=== PATIENT | female | born 1965 | race Hispanic/Latino ===

== ENCOUNTER 2017-10-03 09:12 | Emergency (ER) | payer MEDICARE, MEDICAID ==
[2017-10-03 09:18] VITALS: BMI 28.1
[2017-10-03 10:09] LABS: BASO # 0.1 K/uL (0.0-0.2); BASO % 0.9 % (0.0-2.0); EOS # 0.1 K/uL (0.0-0.7); EOS % 0.7 % (0.0-4.0); LYMPH # 1.8 K/uL (1.0-4.3); LYMPH % 23.1 % (20.0-40.0); MEAN CELL VOLUME 92.1 fl (81.0-99.0); MEAN CORPUSCULAR HGB CONC 32.6 g/dL (33.0-37.0); MONO # 0.4 K/uL (0.0-0.8); MONO % 5.5 % (0.0-10.0); NEUT # 5.3 K/uL (1.8-7.0); NEUT % 69.8 % (50.0-75.0); RBC 4.33 Mil/uL (3.80-5.20); RED CELL DISTRIBUTION WIDTH 14.7 % (11.5-14.5); WHITE BLOOD COUNT 7.6 K/uL (4.8-10.8)
[2017-10-03 10:11] LABS: SQUAMOUS EPITHIAL < 1 /hpf (0-5); URINE BACTERIA RARE (<OCC); URINE BILIRUBIN NEGATIVE (NEGATIVE); URINE BLOOD NEGATIVE (NEGATIVE); URINE CLARITY CLEAR (Clear); URINE COLOR STRAW (YELLOW); URINE GLUCOSE (UA) NEG (Normal); URINE LEUKOCYTE ESTERASE NEG Leu/uL (Negative); URINE NITRATE NEGATIVE (NEGATIVE); URINE PROTEIN NEGATIVE (NEGATIVE); URINE UROBILINOGEN 0.2-1.0 mg/dL (0.2-1.0)
--- NOTE | 2017-10-03 10:23 | ED PDOC ---
HPI: General Adult Time Seen by Provider: 10/03/17 09:33 Chief Complaint (Nursing): Psychiatric Evaluation Chief Complaint (Provider): Bizarre behaviour History Per: Patient, EMS History/Exam Limitations: no limitations Additional Complaint(s): 52yo female, brought to ED by EMS for evaluation [place]. Patient currently refusing to answer questions so a full HPI is unavailable. Past Medical History Reviewed: Historical Data, Nursing Documentation, Vital Signs Vital Signs: Last Vital Signs Temp 98.4 F 10/05/17 18:28 Pulse 82 10/05/17 18:28 Resp 18 10/05/17 18:28 BP 128/78 10/05/17 18:28 Pulse Ox 99 10/07/17 10:40 - Family History Family History: States: No Known Family Hx - Home Medications Home Medications: Ambulatory Orders Medication Instructions Recorded Unobtainable 10/04/17 - Allergies Allergies/Adverse Reactions: Allergies Allergy/AdvReac Type Severity Reaction Status Date / Time Unobtainable Allergy Verified 10/03/17 09:40 Review of Systems Review Of Systems: ROS cannot be obtained secondary to pt's inabilty to answer questions. (patient refusing to answer questions) Physical Exam - Physical Exam Appears: Positive for: No Acute Distress Head Exam: Positive for: ATRAUMATIC, NORMAL INSPECTION, NORMOCEPHALIC Skin: Positive for: Normal Color Neck: Positive for: Supple Respiratory: Negative for: Respiratory Distress Neurologic/Psych: Positive for: Alert - Laboratory Results Result Diagrams: 10/03/17 10:00 10/03/17 10:00 - ECG ECG: Positive for: Interpreted By Me, Viewed By Me ECG Rhythm: Positive for: Normal QRS, Sinus Rhythm, ST/T Changes (nonspecific changes) Rate: 90 O2 Sat by Pulse Oximetry: 99 (RA) Pulse Ox Interpretation: Normal - Radiology X-Ray: Viewed By Me, Read By Radiologist X-Ray Interpretation: No Acute Disease Medical Decision Making Medical Decision Making: Time: 939 Impression: Bizarre affect Plan: -- CT Head -- Labs -- Haldol 5mg IM -- Ativan 2 mg IM Reassess Time: 1106 CT Head FINDINGS: HEMORRHAGE: No intracranial hemorrhage. BRAIN: No mass effect or edema. No atrophy or chronic microvascular ischemic changes. VENTRICLES: Unremarkable. No hydrocephalus. CALVARIUM: Unremarkable. PARANASAL SINUSES: Unremarkable as visualized. No significant inflammatory changes. MASTOID AIR CELLS: Unremarkable as visualized. No inflammatory changes. OTHER FINDINGS: None. IMPRESSION: Normal CT of the Head. Patient medically cleared for crisis evaluation. Time: 1144 Patient seen and evaluated by crisis team, patient to be screened by [facility] Scribe Attestation: Documented by Shanthi Barroso acting as a scribe for Becki Novoa MD. Provider Attestation: All medical record entries made by the Scribe were at my direction and personally dictated by me. I have reviewed the chart and agree that the record accurately reflects my personal performance of the history, physical exam, medical decision making, and the department course for this patient. I have also personally directed, reviewed, and agree with the discharge instructions and disposition. Disposition - Clinical Impression Clinical Impression: Bipolar disorder - Disposition Disposition: Transfer of Care Disposition Time: 19:00 Condition: STABLE Forms: [employer] (Arabic) Patient Signed Over To: Cem Perea
[2017-10-03 10:24] LABS: ALB/GLOB RATIO 1.5 (1.0-2.1); ALBUMIN 4.5 g/dL (3.5-5.0); ALT/SGPT 33 U/L (9-52); AST/SGOT 29 U/L (14-36); BLOOD UREA NITROGEN 13 mg/dl (7-17); CALCIUM 9.6 mg/dL (8.4-10.2); GFR AFRICAN-AMERICAN > 60; GFR NON-AFRICAN AMERICAN > 60
[2017-10-03 10:27] LABS: BARBITURATES, UR NEGATIVE (NEGATIVE); BENZODIAZEPINES, UR NEGATIVE (NEGATIVE); OPIATES, UR NEGATIVE (NEGATIVE); PHENCYCLIDINE, UR NEGATIVE (NEGATIVE)
--- NOTE | 2017-10-03 11:07 | CT ---
PROCEDURE: CT HEAD WITHOUT CONTRAST. HISTORY: Bizarre behavior COMPARISON: None available. TECHNIQUE: Axial computed tomography images were obtained through the head/brain without intravenous contrast. Radiation dose: Total exam DLP = mGy-cm. This CT exam was performed using one or more of the following dose reduction techniques: Automated exposure control, adjustment of the mA and/or kV according to patient size, and/or use of iterative reconstruction technique. FINDINGS: HEMORRHAGE: No intracranial hemorrhage. BRAIN: No mass effect or edema. No atrophy or chronic microvascular ischemic changes. VENTRICLES: Unremarkable. No hydrocephalus. CALVARIUM: Unremarkable. PARANASAL SINUSES: Unremarkable as visualized. No significant inflammatory changes. MASTOID AIR CELLS: Unremarkable as visualized. No inflammatory changes. OTHER FINDINGS: None. IMPRESSION: Normal CT of the Head.
--- NOTE | 2017-10-03 15:46 | RAD ---
HISTORY: Medical clearance COMPARISON: No prior. FINDINGS: LUNGS: No active pulmonary disease. PLEURA: No significant pleural effusion identified, no pneumothorax apparent. CARDIOVASCULAR: Normal. OSSEOUS STRUCTURES: No significant abnormalities. VISUALIZED UPPER ABDOMEN: Normal. OTHER FINDINGS: None. IMPRESSION: No active disease.
--- NOTE | 2017-10-03 19:12 | ED PDOC ---
- Laboratory Results Result Diagrams: 10/03/17 10:00 10/03/17 10:00 - ECG O2 Sat by Pulse Oximetry: 99 (RA) Pulse Ox Interpretation: Normal Medical Decision Making Medical Decision Makin:00 -Patient signed out to me by Becki Novoa. Pending [facility] 07 Patient will be signed out to Dr. Novoa from me pending [facility] bed availability. Pt became agitated overnight requiring haldol 5mg im. currently stable. Scribe Attestation: Documented by Aubrey Russo and Angie Stokes, acting as a scribe for Cem Perea MD Provider Scribe Attestation: All medical record entries made by the Scribe were at my direction and personally dictated by me. I have reviewed the chart and agree that the record accurately reflects my personal performance of the history, physical exam, medical decision making, and the department course for this patient. I have also personally directed, reviewed, and agree with the discharge instructions and disposition. Disposition - Clinical Impression Clinical Impression: Bipolar disorder - POA Present On Arrival: None - Disposition Disposition: Transfer of Care Disposition Time: 07:00 Condition: STABLE Forms: [employer] (Upper Sorbian) Patient Signed Over To: Becki Novoa Handoff Comments: pending [facility] bed availability
--- NOTE | 2017-10-04 07:23 | ED PDOC ---
- Laboratory Results Result Diagrams: 10/03/17 10:00 10/03/17 10:00 - ECG O2 Sat by Pulse Oximetry: 99 Medical Decision Making Medical Decision Makin -Patient transferred to ri by Dr. Perea, pending transfer to [facility]. Disposition - Clinical Impression Clinical Impression: Bipolar disorder - POA Present On Arrival: None - Disposition Disposition: Transfer of Care Disposition Time: 17:00 Condition: STABLE Forms: [employer] (Maltese) Patient Signed Over To: Eriberto Ibarra Handoff Comments: Pending transfer to [facility].
--- NOTE | 2017-10-04 10:00 | CP.PCM.CON ---
History of Present Illness - History of Present Illness History of Present Illness: Psychiatry Consult Note Mail Service Coordinator attempted to interview the patient, the patient asked the film writer's name, wrote it down and then demanded the film writer leave the room while speaking in what seems like a made up language. History below is from the chart as the patient was not cooperative with interview. 52 year old female who was brought to this ER by the [employer] police for bizarre behavior. At the time of the assessment the pt. was minimally cooperative. The pt.s body posture was somewhat guarded. The pt.s speech was normal, although it can be noted that for the first half of the assessment the pt. choose to write her answers down instead of verbalizing. The pt.s thought process was disorganized and tangential. 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 The pt. reported that she has tips for the FBI. The pt. also shared some of her notes which suggested that the [employer] allow big knives through their security airlines. The pt. showed this CW a drawing of a knife alongside this note. The pt. also shared from her notebook that there are a million people in [place] that are starving and I am going to help them. The pt.s mood was irritable and her affect was congruent to her mood. The pt. asked for this CWs name and wrote it down in her notebook. The pt. showed this CW a to do list, which made reference to a lawsuit with [employer]. The pt. also threatened that another law suit was coming. The pt. also wrote down that she has 3 masters including and MED, MSM and an RODOLFO. The pt. re-iterated that she has to file a 500,000 dollar law suit with [employer]. The pt. denied SI and HI. The pt. also denied A/V/T hallucinations. The pt.s eye contact was very poor, noting that she stared straight ahead throughout the assessment. The pt. presents to be mentally decompensating. The pt. did not understand the reasons for which she was brought to this ER. The pt. did not want to disclose any other pertinent information and asked this CW to leave. The pt. was somewhat oriented. This CW offered the pt. admission, pending the disposition of the psychiatrist, however the pt. declined. Impression: 52 yo female acutely psychotic w/ a psychotic disorder (such a schizophrenia vs schizoaffective disorder) vs bipolar disorder w/ psychotic features, acutely decompensated and in need of acute inpatient psychiatric admission. -Transfer to [facility] for involuntary admission when bed is available. -Haldol 5 mg PO or IM Q8 hr PRN agitation/ Ativan 2 mg PO or IM q8hr PRN agitation/ Benadryl 50 mg PO or IM q8hr PRN agitation Past Patient History - Infectious Disease Hx of Infectious Diseases: None - Past Social History Smoking Status: Unknown If Ever Smoked - CARDIAC Hx Cardiac Disorders: No Hx Hypertension: No - PULMONARY Hx Tuberculosis: No - NEUROLOGICAL HX Cerebrovascular Accident: No Hx Seizures: No - HEMATOLOGICAL/ONCOLOGICAL Hx Cancer: No Hx Human Immunodeficiency Virus (HIV): No - GENITOURINARY/GYNECOLOGICAL Hx Sexually Transmitted Disorders: No - PSYCHIATRIC Hx Substance Use: No Meds Allergies/Adverse Reactions: Allergies Allergy/AdvReac Type Severity Reaction Status Date / Time Unobtainable Allergy Verified 10/03/17 09:40 Results - Vital Signs Recent Vital Signs: Last Vital Signs Temp 97.6 F 10/04/17 07:07 Pulse 68 10/04/17 07:07 Resp 17 10/04/17 07:07 BP 121/76 10/04/17 07:07 Pulse Ox 99 10/04/17 07:23 - Labs Result Diagrams: 10/03/17 10:00 10/03/17 10:00 Labs: Laboratory Results - last 24 hr 10/03/17 10/03/17 10/03/17 10:00 10:00 10:00 WBC 7.6 RBC 4.33 Hgb 13.0 Hct 39.9 MCV 92.1 MCH 30.0 MCHC 32.6 L RDW 14.7 H Plt Count 170 MPV 8.0 Neut % (Auto) 69.8 Lymph % (Auto) 23.1 [place] % (Auto) 5.5 Eos % (Auto) 0.7 Baso % (Auto) 0.9 Neut # 5.3 Lymph # 1.8 [place] # 0.4 Eos # 0.1 Baso # 0.1 Sodium 139 Potassium 3.8 Chloride 105 Carbon Dioxide 22 Anion Gap 16 BUN 13 Creatinine 0.8 Est GFR ( Amer) > 60 Est GFR (Non-Af Amer) > 60 Random Glucose 133 H Calcium 9.6 Total Bilirubin 0.6 AST 29 ALT 33 Alkaline Phosphatase 75 Total Protein 7.5 Albumin 4.5 Globulin 3.0 Albumin/Globulin Ratio 1.5 Urine Color Urine Clarity Urine pH Ur Specific [place] Urine Protein Urine Glucose (UA) Urine Ketones Urine Blood Urine Nitrate Urine Bilirubin Urine Urobilinogen Ur Leukocyte Esterase Urine RBC (Auto) Urine Microscopic WBC Ur Squamous Epith Cells Urine Bacteria Urine Opiates Screen Negative Urine Methadone Screen Negative Ur Barbiturates Screen Negative Ur Phencyclidine Scrn Negative Ur Amphetamines Screen Negative U Benzodiazepines Scrn Negative U Oth Cocaine Metabols Negative U Cannabinoids Screen Negative Alcohol, Quantitative < 10 10/03/17 10:00 WBC RBC Hgb Hct MCV MCH MCHC RDW Plt Count MPV Neut % (Auto) Lymph % (Auto) [place] % (Auto) Eos % (Auto) Baso % (Auto) Neut # Lymph # [place] # Eos # Baso # Sodium Potassium Chloride Carbon Dioxide Anion Gap BUN Creatinine Est GFR ( Amer) Est GFR (Non-Af Amer) Random Glucose Calcium Total Bilirubin AST ALT Alkaline Phosphatase Total Protein Albumin Globulin Albumin/Globulin Ratio Urine Color Straw Urine Clarity Clear Urine pH 7.0 Ur Specific [place] < 1.005 Urine Protein Negative Urine Glucose (UA) Neg Urine Ketones Negative Urine Blood Negative Urine Nitrate Negative Urine Bilirubin Negative Urine Urobilinogen 0.2-1.0 Ur Leukocyte Esterase Neg Urine RBC (Auto) < 1 Urine Microscopic WBC < 1 Ur Squamous Epith Cells < 1 Urine Bacteria Rare Urine Opiates Screen Urine Methadone Screen Ur Barbiturates Screen Ur Phencyclidine Scrn Ur Amphetamines Screen U Benzodiazepines Scrn U Oth Cocaine Metabols U Cannabinoids Screen Alcohol, Quantitative
--- NOTE | 2017-10-04 21:44 | ED PDOC ---
- Laboratory Results Result Diagrams: 10/03/17 10:00 10/03/17 10:00 - ECG O2 Sat by Pulse Oximetry: 99 Disposition - Clinical Impression Clinical Impression: Bipolar disorder - POA Present On Arrival: None - Disposition Disposition: Transfer of Care Disposition Time: 00:00 Condition: STABLE Forms: [employer] (Setswana) Patient Signed Over To: Kel Starr
[2017-10-04 22:55] VITALS: RESP 18
--- NOTE | 2017-10-05 01:06 | ED PDOC ---
- Laboratory Results Result Diagrams: 10/03/17 10:00 10/03/17 10:00 - ECG O2 Sat by Pulse Oximetry: 99 (RA) Pulse Ox Interpretation: Normal Medical Decision Making Medical Decision Making: --12:00 Patient signed out to me by Dr. Ibarra pending [facility] clearance. Reassess --12:08 FINDINGS: Chest X-Ray LUNGS: No active pulmonary disease. PLEURA: No significant pleural effusion identified, no pneumothorax apparent. CARDIOVASCULAR: Normal. OSSEOUS STRUCTURES: No significant abnormalities. VISUALIZED UPPER ABDOMEN: Normal. OTHER FINDINGS: None. IMPRESSION: No active disease --07:00 Patient to be signed out to Dr. Mims pending [facility] screening. Scribe Attestation: Documented by Brandon Anderson acting as a scribe for Kel Starr MD. Provider Attestation: All medical record entries made by the Scribe were at my direction and personally dictated by me. I have reviewed the chart and agree that the record accurately reflects my personal performance of the history, physical exam, medical decision making, and the department course for this patient. I have also personally directed, reviewed, and agree with the discharge instructions and disposition. Disposition Discussed With : Rad Mims Doctor Will See Patient In The: ED - Clinical Impression Clinical Impression: Bipolar disorder - POA Present On Arrival: None - Disposition Disposition: Transfer of Care Disposition Time: 07:00 Condition: STABLE Forms: [employer] (Cook Islander) Patient Signed Over To: Rad Mims
--- NOTE | 2017-10-05 07:56 | ED PDOC ---
- Laboratory Results Result Diagrams: 10/03/17 10:00 10/03/17 10:00 - ECG O2 Sat by Pulse Oximetry: 99 (RA) Medical Decision Making Medical Decision Making: Patient was signed out to me by Dr. Starr at 7:00AM, pending [facility] screening. Time: 17:00 Patient is endorsed to Dr. Magan Silvestre III at this time, pending [facility] bed assignment. Scribe Attestation: Documented by Melissa Olson, acting as a scribe for Rad Mims MD Provider Scribe Attestation: All medical record entries made by the Scribe were at my direction and personally dictated by me. I have reviewed the chart and agree that the record accurately reflects my personal performance of the history, physical exam, medical decision making, and the department course for this patient. I have also personally directed, reviewed, and agree with the discharge instructions and disposition. Disposition - Clinical Impression Clinical Impression: Bipolar disorder - POA Present On Arrival: None - Disposition Disposition: Transfer of Care Disposition Time: 17:00 Condition: STABLE Forms: [employer] (Austrian) Patient Signed Over To: Magan Silvestre III (Pending [facility] assignment)
--- NOTE | 2017-10-05 09:55 | CP.PCM.CON ---
History of Present Illness - History of Present Illness History of Present Illness: Psychiatry follow-up note [employer] Sales Representative attempted to interview the patient again, patient refuses to talk w/ telegraphic typewriter operator and only will talk in what seems to be a made up language. History below is from the chart as the patient was not cooperative with interview. 52 year old female who was brought to this ER by the [employer] police for bizarre behavior. At the time of the assessment the pt. was minimally cooperative. The pt.s body posture was somewhat guarded. The pt.s speech was normal, although it can be noted that for the first half of the assessment the pt. choose to write her answers down instead of verbalizing. The pt.s thought process was disorganized and tangential. The pt. 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 The pt. reported that she has tips for the FBI. The pt. also shared some of her notes which suggested that the [employer] allow big knives through their security airlines. The pt. showed this CW a drawing of a knife alongside this note. The pt. also shared from her notebook that there are a million people in [place] that are starving and I am going to help them. The pt.s mood was irritable and her affect was congruent to her mood. The pt. asked for this CWs name and wrote it down in her notebook. The pt. showed this CW a to do list, which made reference to a lawsuit with [employer]. The pt. also threatened that another law suit was coming. The pt. also wrote down that she has 3 masters including and MED, MSM and an [employer]OLFO. The pt. re-iterated that she has to file a 500,000 dollar law suit with [employer]. The pt. denied SI and HI. The pt. also denied A/V/T hallucinations. The pt.s eye contact was very poor, noting that she stared straight ahead throughout the assessment. The pt. presents to be mentally decompensating. The pt. did not understand the reasons for which she was brought to this ER. The pt. did not want to disclose any other pertinent information and asked this CW to leave. The pt. was somewhat oriented. This CW offered the pt. admission, pending the disposition of the psychiatrist, however the pt. declined. Impression: 52 yo female acutely psychotic w/ a psychotic disorder (such a schizophrenia vs schizoaffective disorder) vs bipolar disorder w/ psychotic features, acutely decompensated and in need of acute inpatient psychiatric admission. -[place] [facility] [place] when bed is available. -Haldol 5 mg PO or IM Q8 hr PRN agitation/ Ativan 2 mg PO or IM q8hr PRN agitation/ Benadryl 50 mg PO or IM q8hr PRN agitation Past Patient History - Infectious Disease Hx of Infectious Diseases: None - Past Social History Smoking Status: Unknown If Ever Smoked - CARDIAC Hx Cardiac Disorders: No Hx Hypertension: No - PULMONARY Hx Tuberculosis: No - NEUROLOGICAL HX Cerebrovascular Accident: No Hx Seizures: No - HEMATOLOGICAL/ONCOLOGICAL Hx Cancer: No Hx Human Immunodeficiency Virus (HIV): No - GENITOURINARY/GYNECOLOGICAL Hx Sexually Transmitted Disorders: No - PSYCHIATRIC Hx Substance Use: No Meds Allergies/Adverse Reactions: Allergies Allergy/AdvReac Type Severity Reaction Status Date / Time Unobtainable Allergy Verified 10/03/17 09:40 Results - Vital Signs Recent Vital Signs: Last Vital Signs Temp 98.2 F 10/05/17 06:24 Pulse 79 10/05/17 06:24 Resp 18 10/05/17 06:24 BP 143/90 10/05/17 06:24 Pulse Ox 99 10/05/17 07:56 - Labs Result Diagrams: 10/03/17 10:00 10/03/17 10:00
--- NOTE | 2017-10-05 17:13 | ED PDOC ---
- Laboratory Results Result Diagrams: 10/03/17 10:00 10/03/17 10:00 - ECG O2 Sat by Pulse Oximetry: 99 (RA) Medical Decision Making Medical Decision Making: received at 5pm pending [facility] bed availability. Labs reviewed and patient was prior medically cleared. Remained 1:1 obs Disposition - Clinical Impression Clinical Impression: Bipolar disorder - POA Present On Arrival: None - Disposition Disposition: Other Institution ([facility]) Disposition Time: 20:30 Condition: STABLE
[2017-10-05 18:29] VITALS: BP 128/78; TEMP 98.4
[2017-10-06 12:35] VITALS: O2SAT 99
--- NOTE | 2017-10-06 17:38 | CARD ---
APPROVED REPORT EKG Measurement Heart [id number] <Conclusion> Normal sinus rhythm Possible Left atrial enlargement Nonspecific ST abnormality Abnormal ECG
[2017-10-09 16:07] VITALS: PULSE 90
== END 2017-10-05 21:00 | disposition short-term general hospital (02) ==
LOC: EDBD 09:12 → H.ER 09:12
DX: F31.9 Bipolar disorder, unspecified (principal); Z00.8 Encounter for other general examination
CPT/HCPCS: 70450; 71010; 80053; 81003; 81025; 85025; 93005; 96372; 99285; G0480; J1630; J2060